=== PATIENT | male | born 1935 ===

== ENCOUNTER 2020-05-22 21:48 | Emergency (ER) | payer MEDICARE ==
[~2020-05-22] VITALS: Ht 177.8 cm; Wt 90.7 kg
[2020-05-23] MEDS ORDERED: Hytrin1 MG PO (00:37)
[2020-05-23] MEDS ORDERED: ATOR20 (00:38)
[2020-05-23] MEDS ORDERED: Lisinopril2.5 MG (00:38)
[2020-05-23] MEDS ORDERED: IBUP100S PO (00:38)
[2020-05-23] MEDS ORDERED: OMEP20ER (00:38)
[2020-05-23] MEDS ORDERED: Vitamin C100 M1 PO (00:38)
[2020-05-23] MEDS ORDERED: ALLO100 (00:38)
[2020-05-23] MEDS ORDERED: PRADAXA75 MG PO (00:39)
[2020-05-23] MEDS ORDERED: AMOCLA875 PO (01:58)
== END 2020-05-23 02:45 | disposition home or self-care (01) ==
LOC: ER 21:48
DX: L03.116 Cellulitis of left lower limb (principal); I48.91 Unspecified atrial fibrillation; I10 Essential (primary) hypertension; I25.2 Old myocardial infarction; Z79.899 Other long term (current) drug therapy; Z87.891 Personal history of nicotine dependence
CPT/HCPCS: 73620; 99283-25; A9270; A9270-GY